=== PATIENT | male | born 1960 | race Hispanic/Latino ===

== ENCOUNTER → 2018-05-09 | Outpatient (CLI) | payer BC, MEDICARE ==
[~2018-05-09] MED LIST: AMLO5TAB7 PO; APIX5TAB PO; ASPI-1026 PO; ATOR20TA65 PO; CALC667T5 PO; FOLI1TAB85 PO; FURO20TA4 PO; INSLAN SQ; LOSA50TA25 PO; METO200T49 PO; NOVOLOG SQ; SERT25TA5 PO; SPIR25TA6 PO; TAMS0.4C32 PO; ZOLP10TA6 PO
== END | disposition home or self-care (01) ==
LOC: RAH 09:44
PROVIDERS: ATTEND Internal Medicine Cardiovascular Disease
DX: I27.20 Pulmonary hypertension, unspecified (principal); I07.1 Rheumatic tricuspid insufficiency; R18.8 Other ascites; I37.1 Nonrheumatic pulmonary valve insufficiency
CPT/HCPCS: 93306

== ENCOUNTER → 2018-10-10 | Outpatient (CLI) | payer BC, MEDICARE ==
[~2018-10-10] MED LIST changes: -AMLO5TAB7 PO; +AMLO5TAB9 PO; -LOSA50TA25 PO; +LOSA50TA64 PO
== END | disposition home or self-care (01) ==
LOC: SHCH 09:59
PROVIDERS: ATTEND Internal Medicine Cardiovascular Disease
DX: I08.3 Combined rheumatic disorders of mitral, aortic and tricuspid valves (principal); I10 Essential (primary) hypertension
CPT/HCPCS: 93306

== ENCOUNTER → 2019-12-12 | Outpatient (CLI) | payer MEDICARE ==
[~2019-12-12] MED LIST changes: -CALC667T5 PO; +CALC667T6 PO
== END | disposition home or self-care (01) ==
LOC: SHCH 14:11
PROVIDERS: ATTEND Internal Medicine Cardiovascular Disease
DX: I25.5 Ischemic cardiomyopathy (principal)
CPT/HCPCS: 93306; 93356

== ENCOUNTER → 2019-12-25 | Outpatient (CLI) | payer MEDICARE | END | disposition home or self-care (01) | LOC: SHCH 15:32 | PROVIDERS: ATTEND Internal Medicine Cardiovascular Disease | DX: R09.89 Other specified symptoms and signs involving the circulatory and respiratory systems (principal) | CPT/HCPCS: 93880 ==

== ENCOUNTER → 2020-01-06 | Outpatient (CLI) | payer MEDICARE ==
[~2020-01-06] VITALS: Ht 170.2 cm; Wt 73.0 kg
[~2020-01-06] MED LIST changes: +REGADENOSON 0.4 MG/5 ML PF SYG IVP SCH
== END | disposition home or self-care (01) ==
LOC: SHCH 08:28
PROVIDERS: ATTEND Internal Medicine Cardiovascular Disease
DX: I25.10 Atherosclerotic heart disease of native coronary artery without angina pectoris (principal)
CPT/HCPCS: 78452; 93017; 96374; A9500 ×2; J2785

== ENCOUNTER 2020-02-07 06:38 | Day surgery (SDC) | payer MEDICARE ==
[2020-02-05 09:17] LABS: BASOPHILS % (AUTO) 0.7 % (0.0-5.0); EOSINOPHILS % (AUTO) 6.1 % (0.0-8.0); HEMATOCRIT 35.9 % (42-54); LYMPHOCYTES % (AUTO) 28.2 % (21.0-51.0); MEAN CORPUSCULAR HEMOGLOBIN 31.3 pg (27.0-33.0); MEAN CORPUSCULAR VOLUME 97.8 fL (79-99); MONOCYTES % (AUTO) 9.6 % (3.0-13.0); NEUTROPHILS % (AUTO) 55.1 % (40.0-77.0); PLATELET COUNT (AUTO) 146 K/uL (130-400); RED BLOOD CELL COUNT(AUTO) 3.67 MIL/uL (4.50-6.20); RED CELL DISTRIBUTION WIDTH 16.8 % (11.0-15.5); WHITE BLOOD COUNT (AUTO) 5.9 K/uL (4.8-10.8)
[2020-02-05 09:22] LABS: APPEARANCE,URINE TURBID (CLEAR); BILIRUBIN,URINE MODERATE (NEGATIVE); COLOR,URINE BROWN (YELLOW); GLUCOSE, URINE (UA) 100 mg/dL (NEGATIVE); KETONES,URINE 5 mg/dL (NEGATIVE); LEUKOCYTE ESTERASE ,URINE MODERATE (NEGATIVE); NITRATE,URINE POSITIVE (NEGATIVE); OCCULT BLOOD,URINE LARGE (NEGATIVE); PH,URINE 6.5 (5.0-8.0); PROTEIN,URINE >=300 mg/dL (NEGATIVE)
[2020-02-05 09:27] LABS: CREATININE 6.7 mg/dL (0.5-1.5); POTASSIUM 5.9 mmol/L (3.5-5.1)
[2020-02-05 09:29] LABS: INR 1.18 (0.85-1.15); PARTIAL THROMBOPLASTIN TIME 32.6 SEC (26.3-35.5); PROTHROMBIN TIME 12.7 SEC (9.6-11.6)
[2020-02-05 09:40] LABS: BACTERIA,URINE Few /HPF (None Seen); RBC,URINE TNTC /HPF (0-1); SQUAMOUS EPITHELIAL CELL,UR Few /HPF (0-2); WBC,URINE TNTC /HPF (0-1)
[2020-02-06 06:57] VITALS: BP 16/59
[2020-02-06 10:36] VITALS: BP 119/65
--- NOTE | 2020-02-06 13:15 | NUR ---
JOCELIN Peñaloza NOTIFIED WITH K=5.9. WILL REPEAT BMP AM OF PROCEDURE 02/07/20
[~2020-02-07] VITALS: Ht 171.4 cm; Wt 76.0 kg
[2020-02-07] VITALS (12 sets, daily range): BP systolic 104–140; BP diastolic 51–67
[~2020-02-07 06:38] MED LIST changes: -AMLO5TAB9 PO; -APIX5TAB PO; -ASPI-1026 PO; +ASPI-1197 PO; -ATOR20TA65 PO; +ATOR40TA71 PO; -CALC667T6 PO; +CARV6.25 PO; +FURO-152 PO; -FURO20TA4 PO; +LORA0.5T83 PO; -LOSA50TA64 PO; -METO200T49 PO; -REGADENOSON 0.4 MG/5 ML PF SYG IVP SCH; -SERT25TA5 PO; +SERT50TA12 PO; -SPIR25TA6 PO; -TAMS0.4C32 PO; +VALS80TA30 PO
[2020-02-07] MEDS ORDERED: SODIUM CHLORIDE 0.9% 1000ML 1,000 ML IV ONE (06:51)
[2020-02-07 07:07] LABS: CREATININE 5.9 mg/dL (0.5-1.5); POTASSIUM 5.2 mmol/L (3.5-5.1)
[2020-02-07] MEDS ORDERED: CLOP75TA32 PO (07:53)
[2020-02-07] MEDS ORDERED: B1/B1TAB4 PO (07:53)
[2020-02-07] MEDS ORDERED: FOLI0.4T2 PO (07:53)
[2020-02-07] MEDS ORDERED: VITA100051 PO (07:53)
[2020-02-07] MEDS ORDERED: CALC667C10 PO (07:53)
[2020-02-07] MEDS ORDERED: BACL10TA PO (07:53)
[2020-02-07] MEDS ORDERED: CYAN200017 PO (07:53)
[2020-02-07] MEDS ORDERED: HYDR-3830 PO (07:53)
[2020-02-07] MEDS ORDERED: ACET1TAB25 PO (07:53)
[2020-02-07] MEDS ORDERED: CALC-1205 PO (07:53)
--- NOTE | 2020-02-07 08:02 | NUR ---
consult: spoke to Nile keller for dr. Neri Edward regarding K 5.2, finger stick glucometer 223 and glucose per lab 271, ok to proceed with procedure.
[2020-02-07] MEDS ORDERED: IOHEXOL 350 MG/ML 100ML INFUS..BTL IV ONE (09:41)
[2020-02-07] MEDS ORDERED: SODIUM BICARB 50MEQ 50ML VIAL ONE (09:41)
[2020-02-07] MEDS ORDERED: HEPARIN SODIUM 1000UNIT/ML 10ML VIAL ONE (09:41)
[2020-02-07] MEDS ORDERED: IOHEXOL-350 50ML VIAL IV ONE ×2 (09:41→10:56)
[2020-02-07] MEDS ORDERED: MIDAZOLAM HCL 1 MG/ML 2ML VIAL ONE (09:41)
[2020-02-07] MEDS ORDERED: LIDOCAINE HCL 2% 20ML ONE (09:42)
[2020-02-07] MEDS ORDERED: MEPERIDINE-PF 25 MG/ML SYG ONE (09:42)
[2020-02-07] MEDS ORDERED: NITROGLYCERIN 2 MG/VIAL VIAL IV ONE (09:49)
--- NOTE | 2020-02-07 09:50 | NUR ---
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
[2020-02-07] MEDS ORDERED: IOHEXOL-350 75 ML VIAL IV ONE (10:50)
[2020-02-07] MEDS ORDERED: ACETAMINOPHEN-CODEINE 300/30MG TAB PO PRN (11:15)
--- NOTE | 2020-02-07 11:50 | NUR ---
POST OP RECEIVED PT BACK FROM [facility]. S/P LEFT HEART CATH. STENT TO PROXIMAL RCA.RIGHT GROIN WITH MYNX DRESSING DRY AND INTACT, SEE POST CATH ASSESSMENT. PT INSTRUCTED TO KEEP BEDREST FOR 6 HRS , TO KEEP LEG STRAIGHT RIGHT, PLAN OF CARE DISCUSS WITH PATIENT. PT VERBALIZED UNDERSTANDING. CALL LIGHT WITHIN REACH.
[2020-02-07] MEDS ORDERED: KETOROLAC TROMETHAMINE 30MG/ML ONE (17:28)
[2020-02-07] MEDS ORDERED: KETOROLAC TROMETHAMINE 30MG/ML IV SCH (17:30)
--- NOTE | 2020-02-07 19:40 | NUR ---
PT AAOX3, NO DISTRESS VITALS WNL. PT STABLE NO C/O PAIN TO RT GROIN. DRESSING TO RT GROIN IS D/I. NO ACTIVE BLEEDING OR HEMATOMA TO RT GROIN. PT IV D/C, CATHETER INTACT. PT DRESSED WITH ASSISTANCE. PT TAKEN OUT IN W/C WITH PERSONAL BELONGINGS. DRIVEN HOME BY SISTER CHERYL.
== END 2020-02-07 19:44 | disposition home or self-care (01) ==
LOC: DAH 06:38
PROVIDERS: ATTEND Internal Medicine Cardiovascular Disease
DX: I25.10 Atherosclerotic heart disease of native coronary artery without angina pectoris (principal); I34.0 Nonrheumatic mitral (valve) insufficiency; E78.5 Hyperlipidemia, unspecified; I12.0 Hypertensive chronic kidney disease with stage 5 chronic kidney disease or end stage renal disease; E11.22 Type 2 diabetes mellitus with diabetic chronic kidney disease; Z86.73 Personal history of transient ischemic attack (TIA), and cerebral infarction without residual deficits; Z79.84 Long term (current) use of oral hypoglycemic drugs; Z79.82 Long term (current) use of aspirin; Z79.01 Long term (current) use of anticoagulants; Z79.899 Other long term (current) drug therapy
CPT/HCPCS: 36415 ×2; 71045; 80048 ×2; 81001; 82948 ×3; 85025; 85610; 85730; 87088; 93005; 93458; A4215; A4216; A4221; A4222; A4223 ×3; A4606; A4663; C1725; C1760; C1769; C1874; C1887 ×2; C1894; C9600; J1644 ×2; J1885; J2175; J2250; J3490 ×3; J7030; Q9965; Q9967 ×2; 99156; 99157

== ENCOUNTER 2020-03-03 10:24 | Emergency (ER) | payer MEDICARE ==
[~2020-03-03 10:24] MED LIST changes: +ACET1TAB25 PO; +B1/B1TAB4 PO; +BACL10TA PO; +CALC-1205 PO; +CALC667C10 PO; +CLOP75TA32 PO; +CYAN200017 PO; +FOLI0.4T2 PO; +HYDR-3830 PO; +VITA100051 PO
[2020-03-03 11:09] LABS: EOSINOPHILS % (AUTO) 8.5 % (0.0-8.0); LYMPHOCYTES % (AUTO) 22.6 % (21.0-51.0); MEAN CORPUSCULAR HEMOGLOBIN 31.3 pg (27.0-33.0); MEAN CORPUSCULAR HGB CONC 33.2 g/dL (32.0-36.0); MEAN CORPUSCULAR VOLUME 94.3 fL (79-99); MONOCYTES % (AUTO) 7.9 % (3.0-13.0); NEUTROPHILS % (AUTO) 59.7 % (40.0-77.0); PLATELET COUNT (AUTO) 163 K/uL (130-400); RED BLOOD CELL COUNT(AUTO) 4.03 MIL/uL (4.50-6.20); RED CELL DISTRIBUTION WIDTH 14.8 % (11.0-15.5); WHITE BLOOD COUNT (AUTO) 6.7 K/uL (4.8-10.8)
[2020-03-03 11:11] LABS: POTASSIUM 4.6 mmol/L (3.5-5.1)
[2020-03-03 11:16] LABS: ALBUMIN 4.2 g/dL (3.5-5.0); BILIRUBIN,TOTAL 0.7 mg/dL (0.2-1.0); TOTAL PROTEIN, SERUM 9.6 g/dL (6.0-8.3)
[2020-03-03 11:28] LABS: INR 1.06 (0.85-1.15); PARTIAL THROMBOPLASTIN TIME 53.7 SEC (26.3-35.5); PROTHROMBIN TIME 11.4 SEC (9.6-11.6)
[2020-03-03 11:40] LABS: B-TYPE NATRIURETIC PEPTIDE 1630 pg/mL (0-100)
== END 2020-03-03 14:11 | disposition home or self-care (01) ==
LOC: EDH 10:24
DX: R06.00 Dyspnea, unspecified (principal); F10.10 Alcohol abuse, uncomplicated; I12.0 Hypertensive chronic kidney disease with stage 5 chronic kidney disease or end stage renal disease; N18.6 End stage renal disease; E78.5 Hyperlipidemia, unspecified; Z99.2 Dependence on renal dialysis; E03.9 Hypothyroidism, unspecified; Z86.73 Personal history of transient ischemic attack (TIA), and cerebral infarction without residual deficits
CPT/HCPCS: 36415; 71045; 80053; 82550; 83880; 84484; 85025; 85610; 85730; 93005

== ENCOUNTER 2020-06-19 11:03 | Day surgery (SDC) | payer MEDICARE ==
[2020-06-11 11:45] LABS: BASOPHILS % (AUTO) 1.2 % (0.0-5.0); EOSINOPHILS % (AUTO) 4.8 % (0.0-8.0); LYMPHOCYTES % (AUTO) 20.7 % (21.0-51.0); MEAN CORPUSCULAR HGB CONC 32.5 g/dL (32.0-36.0); MEAN CORPUSCULAR VOLUME 104.5 fL (79-99); MONOCYTES % (AUTO) 10.8 % (3.0-13.0); NEUTROPHILS % (AUTO) 62.3 % (40.0-77.0); PLATELET COUNT (AUTO) 197 K/uL (130-400); RED BLOOD CELL COUNT(AUTO) 2.68 MIL/uL (4.50-6.20); RED CELL DISTRIBUTION WIDTH 15.9 % (11.0-15.5); WHITE BLOOD COUNT (AUTO) 4.3 K/uL (4.8-10.8)
[2020-06-11 12:00] LABS: CREATININE 4.1 mg/dL (0.5-1.5); POTASSIUM 4.4 mmol/L (3.5-5.1)
[2020-06-11 12:04] LABS: INR 1.16 (0.85-1.15); PROTHROMBIN TIME 12.2 SEC (9.6-11.6)
[2020-06-11 12:05] LABS: PARTIAL THROMBOPLASTIN TIME 30.3 SEC (26.3-35.5)
[2020-06-19] VITALS (17 sets, daily range): BP systolic 130–160; BP diastolic 41–105
[~2020-06-19 11:03] MED LIST changes: +AMLO-258 PO; +ATOR20TA65 PO; -ATOR40TA71 PO; +CALC-1125 PO; -CALC-1205 PO; -CALC667C10 PO; +CEFAZOLIN SODIUM 1 GM VIAL IVP SCH; -CYAN200017 PO; -FOLI0.4T2 PO; +FOLI0.4T6 PO; -HYDR-3830 PO; +INSU100C6 SQ; -NOVOLOG SQ; +SERT-439 PO; -SERT50TA12 PO; +SILD20TA14 PO; +TERB250T89 PO; -VALS80TA30 PO
[2020-06-19] MEDS ORDERED: 0.9%NACL 1000ML 0 ML IV ONE (11:06)
[2020-06-19] MEDS ORDERED: 0.9% NACL 500ML IV.SOLN 500 ML IV ONE (11:10)
[2020-06-19] MEDS ORDERED: LIDOCAINE HCL 1% 20 ML VIAL ONE (11:29)
[2020-06-19] MEDS ORDERED: ROPIVACAINE 0.5% 5MG/ML 30ML IJ ONE (12:53)
[2020-06-19] MEDS ORDERED: KETAMINE 50MG/ML SYRINGE 50 MG/ML DISP.SYRIN IV ONE (12:54)
[2020-06-19] MEDS ORDERED: PROPOFOL 1000 MG/100 ML 100 ML IV ONE (12:54)
[2020-06-19] MEDS ORDERED: MIDAZOLAM HCL 1 MG/ML 2ML VIAL ONE (12:55)
[2020-06-19] MEDS ORDERED: HEPARIN 10,000 UNIT/10ML (1,000 UNIT/ML) VIAL ONE (13:36)
[2020-06-19] MEDS ORDERED: EPHEDRINE SULFATE 50 MG/ML AMPULE ONE (13:58)
== END 2020-06-19 16:05 | disposition home or self-care (01) ==
LOC: DAH 11:03
PROVIDERS: ATTEND Surgery Vascular Surgery
DX: N18.6 End stage renal disease (principal); Z99.2 Dependence on renal dialysis; Z20.828 Contact with and (suspected) exposure to other viral communicable diseases; E11.22 Type 2 diabetes mellitus with diabetic chronic kidney disease; I12.0 Hypertensive chronic kidney disease with stage 5 chronic kidney disease or end stage renal disease; Z86.73 Personal history of transient ischemic attack (TIA), and cerebral infarction without residual deficits; E66.3 Overweight; F41.9 Anxiety disorder, unspecified; F32.9 Major depressive disorder, single episode, unspecified; Z79.4 Long term (current) use of insulin; Z79.899 Other long term (current) drug therapy; Z68.26 Body mass index [BMI] 26.0-26.9, adult
CPT/HCPCS: 36415; 36821; 71045; 80048; 82948 ×2; 85025; 85610; 85730; 93005; A4222; C1713 ×2; C9803; G0168; J0690; J1644 ×2; J2250; J2704; J2795; J3490 ×2; J7030; J7040 ×2; U0003

== ENCOUNTER → 2020-08-18 | Outpatient (CLI) | payer MEDICARE ==
[~2020-08-18] MED LIST changes: -CALC-1125 PO; +CALC600T15 PO; -CEFAZOLIN SODIUM 1 GM VIAL IVP SCH; +TERB250T51 PO; -TERB250T89 PO
== END | disposition home or self-care (01) ==
LOC: SHCH 11:29
PROVIDERS: ATTEND Internal Medicine Cardiovascular Disease
DX: I73.9 Peripheral vascular disease, unspecified (principal)
CPT/HCPCS: 93925

== ENCOUNTER → 2020-09-03 | Outpatient (CLI) | payer MEDICARE | END | disposition home or self-care (01) | LOC: SHCH 12:29 | PROVIDERS: ATTEND Internal Medicine Cardiovascular Disease | DX: I10 Essential (primary) hypertension (principal); I25.5 Ischemic cardiomyopathy | CPT/HCPCS: 93306; 93356 ==

== ENCOUNTER → 2021-12-22 | Outpatient (CLI) | payer MEDICARE ==
[~2021-12-22] MED LIST changes: +ACET-2079 PO; -ACET1TAB25 PO; +CALC-1125 PO; -CALC600T15 PO; -TERB250T51 PO; +TERB250T89 PO
[2021-12-22 12:48] LABS: ALBUMIN 3.5 g/dL (3.5-5.0); CREATININE 5.8 mg/dL (0.5-1.5); POTASSIUM 4.8 mmol/L (3.5-5.1); TOTAL PROTEIN, SERUM 8.6 g/dL (6.0-8.3)
== END | disposition home or self-care (01) ==
LOC: LAB 11:19
PROVIDERS: ATTEND Internal Medicine Cardiovascular Disease
DX: I25.10 Atherosclerotic heart disease of native coronary artery without angina pectoris (principal); I10 Essential (primary) hypertension
CPT/HCPCS: 36415; 80053

== ENCOUNTER → 2023-08-30 | Outpatient (CLI) | payer MEDICARE ==
[~2023-08-30] MED LIST changes: -AMLO-258 PO; +CA C1TAB95 PO; -CALC-1125 PO; -FURO-152 PO; +HYDROXYZINE PO; -SILD20TA14 PO; -TERB250T89 PO; +VALSARTAN PO
== END | disposition home or self-care (01) ==
LOC: SHCH 13:13
PROVIDERS: ATTEND Internal Medicine Cardiovascular Disease
DX: I65.23 Occlusion and stenosis of bilateral carotid arteries (principal)
CPT/HCPCS: 93880